=== PATIENT | male | born 1970 | race Caucasian/White ===

== ENCOUNTER 2021-10-21 13:13 | Emergency (ER) | payer MEDICAID ==
[~2021-10-21] VITALS: Ht 188 cm; Wt 159.1 kg
[~2021-10-21 13:13] MED LIST: ACTOS 45MG45 MG/TAB PO; AMITRIPTYLINE H75 M1 PO; BYSTOLIC10 MG PO; COREG 25MG25 MG/TAB PO; GLUCOPHAGE1000 MG PO; GLUCOTROL10 MG PO; KOMBIGLYZE XR 11 TER PO; LEVEMIR100 U/ML SQ; OMNICEF 300MG300 MG PO; PRAVACHOL 40MG40 MG PO; PRINZIDE 25 MG-1 TAB PO; PRISTIQ 50 MG T50 MG PO; XANAX .25M0.25 MG/TA PO; ZESTRIL 5MG5 MG PO
[2021-10-21 13:40] VITALS: TEMP 98.2
[2021-10-21] MEDS ORDERED: DOXYCYCLINE 10100 MG PO (14:11)
[2021-10-21] MEDS ORDERED: CENTANY2% TOP (14:11)
[2021-10-21 14:16] VITALS: BP 145/97; PULSE 85
== END 2021-10-21 14:18 | disposition home or self-care (01) ==
LOC: COL.ER 13:13
DX: T25.222A Burn of second degree of left foot, initial encounter (principal); Z88.0 Allergy status to penicillin; Z91.14 Patient's other noncompliance with medication regimen; X58.XXXA Exposure to other specified factors, initial encounter